=== PATIENT | female | born 1990 | race Native Hawaiian/Other Pacific Islander ===

== ENCOUNTER 2022-10-06 08:57 | Emergency (ER) | payer OTHER, SELFPAY ==
[2022-10-06 09:00] VITALS: BP 122/80; PULSE 82; RESP 18; TEMP 36.8; O2SAT 99
--- NOTE | 2022-10-06 15:12 | ED.GENADUL_ITS ---
Discharge Plan Disposition Patient Disposition: Home Discharge Details Clinical Impression: Encounter for repeat administration of rabies vaccination, Exposure to bat without known bite Primary Care Provider: Luh Vasques ED Provider: Christie Andersen Home Meds and New Rx's Prescriptions: No Action No Known Home Meds Discharge Instructions Additional Instructions: You have now received four rabies vaccines and likely your series is completed please be reevaluated should you have any concerns or presenting symptoms such as rashes, difficulty swallowing/breathing, or flu like syndrome/fever Referrals: Luh Vasques [Primary Care Provider] - Medical Decision Making Patient presents status post exposure to bat Patient given her fourth dose of rabies vaccine No acute distress, no other concerns at this time HPI General Date/Time Provider Initiated Documentation: 10/06/22 08:58 . HPI Narrative: 32-year-old female presents with report exposure to that several weeks. She is here to receive her fourth rabies vaccine due for routine. She denies any current complaints. Denies chance of Related Data Home Medications Medication Instructions Recorded Confirmed Unknown [No Known Home Meds] 10/07/13 10/07/13 Allergies Allergy/AdvReac Type Severity Reaction Status Date / Time No Known Allergies Allergy Unverified 10/17/13 10:29 General Stated Complaint: Recheck ADILIA: 4 PFSH All Active Problems (Updated 10/06/22 @ 09:24 by [place]) Encounter for repeat administration of rabies vaccination (Acute) Exposure to bat without known bite (Acute) Social History Smoking/Tobacco Use Status: Never Smoking risk assessment performed?: Yes Alcohol Intake: never Substance use type: does not use Do you feel safe at home: Yes Do you feel safe in your relationship?: Yes Exam Narrative Exam Narrative: Alert, oriented,well in appearance Course Vital Signs Vital signs: Vital Signs Temperature 36.8 C 10/06/22 09:00 Pulse 82 10/06/22 09:00 Respiratory Rate 18 10/06/22 09:00 Blood Pressure 122/80 10/06/22 09:00 Pulse Oximetry 99 10/06/22 09:00 Temperature 36.8 C 10/06/22 09:00 Temperature Source Oral 10/06/22 09:00 Pulse 82 10/06/22 09:00 Respiratory Rate 18 10/06/22 09:00 Respiratory Effort Normal, Non-Labored 10/06/22 09:04 Blood Pressure 122/80 05/29/23 09:00 Blood Pressure Position Supine 10/06/22 09:00 Pulse Oximetry 99 10/06/22 09:00 Oxygen Delivery Method Room Air 10/06/22 09:00 Oxygen Flow Rate 0 10/06/22 09:00 Pain Level 0 10/06/22 09:00
== END 2022-10-06 09:37 | disposition home or self-care (01) ==
PROVIDERS: Emergency Provider Physician Assistant; PCP Nurse Practitioner Family
DX: Z23 Encounter for immunization (principal); Z22.8 Carrier of other infectious diseases
CPT/HCPCS: 90471; 99284; 90675